=== PATIENT | female | born 1955 | race Hispanic/Latino ===

== ENCOUNTER 2024-04-16 19:55 | Emergency (ER) | payer SELFPAY ==
[~2024-04-16] VITALS: Ht 160 cm; Wt 68.0 kg
[~2024-04-16 19:55] MED LIST: (None)125 MG PO; AUGMENTIN500TAB PO; CEPHALEXIN500 MG PO; DICYCLOMINE HYD10 MG PO; FIORICET 50-3001 CAP PO; LEVSIN0.125 M1 PO; PROTONIX40 M2 PO; RANITIDINE300 MG PO; ZOFRAN4 MG/TAB PO
[2024-04-16] MEDS ORDERED: BENADRYL25 M1 PO (21:34)
[2024-04-16] MEDS ORDERED: DECADRON4 MG PO (21:34)
[2024-04-16] MEDS ORDERED: DiphenhydrAMINE HCL 25 MG CPLT PO ONE (21:35)
[2024-04-16] MEDS ORDERED: STROMECTOL3 MG PO (21:42)
[2024-04-16 21:53] VITALS: BP 148/78
== END 2024-04-16 21:53 | disposition home or self-care (01) | DRG 607 ==
LOC: ED 19:55
DX: L50.0 Allergic urticaria (principal)